=== PATIENT | male | born 1940 | race Hispanic/Latino ===

== ENCOUNTER 2017-10-18 17:19 | Inpatient (IN) | payer MEDICARE ==
[~2017-10-18] VITALS: Ht 160 cm; Wt 99.8 kg
[2017-10-18] MEDS ORDERED: ASPIRIN 81 MG CHEW TAB PO STA (18:33)
[2017-10-18] MEDS ORDERED: ALBUTEROL/IPRATROPIUM 3 ML NEB NEB ONE (18:45)
[2017-10-18 19:01] LABS: BASOPHILS # (AUTO) 0.1 (0.0-0.1); BASOPHILS % 0.8 % (0.0-1.0); EOSINOPHILS # (AUTO) 0.3 (0.0-0.4); EOSINOPHILS % 4.9 % (0.0-6.0); HEMATOCRIT 38.2 % (38.2-49.6); HEMOGLOBIN 12.9 g/dL (14.0-18.0); LYMPHOCYTES # (AUTO) 1.1 (1.0-3.2); LYMPHOCYTES % 17.5 % (18.0-39.1); MEAN CORPUSCULAR HEMOGLOBIN 32.9 pg (28-32); MEAN CORPUSCULAR HGB CONC 33.8 g/dL (31-35); MEAN CORPUSCULAR VOLUME 97.4 fL (81-99); MONOCYTES # (AUTO) 0.7 (0.2-0.8); MONOCYTES % 10.5 % (4.4-11.3); NEUTROPHILS # (AUTO) 4.2 (2.1-6.9); NEUTROPHILS % 65.7 % (38.7-80.0); PLATELET COUNT 138 x10e3/uL (140-360); RED BLOOD COUNT 3.92 x10e6/uL (4.3-5.7)
[2017-10-18 19:10] LABS: INR 1.14; PROTHROMBIN TIME 13.7 seconds (11.9-14.5)
[2017-10-18 19:11] LABS: PARTIAL THROMBOPLASTIN TIME 35.4 seconds (23.8-35.5)
[2017-10-18 19:18] LABS: ALBUMIN 3.6 g/dL (3.5-5.0); ALBUMIN/GLOBULIN RATIO 0.7 (0.8-2.0); ANION GAP 17.1 mmol/L (8-16); CALCIUM 9.4 mg/dL (8.4-10.2); CREATININE, SERUM 1.38 mg/dL (0.72-1.25); POTASSIUM 4.1 mmol/L (3.5-5.1)
[2017-10-18 19:25] LABS: CREATINE KINASE MB 1.1 ng/mL (0-5.0)
--- NOTE | 2017-10-18 19:42 | Diagnostic Imaging Report ---
Examination: Single AP view of the chest. COMPARISON: None. INDICATION: Shortness of breath, chest pain IMPRESSION: 1. Lines and Tubes: None 2. Minimal right infrahilar opacity, which likely represents atelectasis. No consolidation or effusion 3. Cardiomediastinal silhouette is normal. Prominence of bilateral pulmonary arteries, which may reflect pulmonary hypertension.. 4. No acute bony abnormalities. Signed by: Dr. Dylon Stringer M.D. on 10/18/2017 7:38 PM
[2017-10-18] MEDS ORDERED: FUROSEMIDE40 MG PO (20:09)
[2017-10-18] MEDS ORDERED: GABAPENTIN300 MG PO (20:09)
[2017-10-18] MEDS ORDERED: PRAVASTATIN SOD80 MG PO (20:09)
[2017-10-18] MEDS ORDERED: HYDRALAZINE HCL25 MG PO (20:09)
[2017-10-18] MEDS ORDERED: METFORMIN HCL500 M1 PO (20:09)
[2017-10-18] MEDS ORDERED: ULTRACET TABLE1 EACH PO (20:09)
[2017-10-18] MEDS ORDERED: GEMFIBROZIL600 MG PO (20:09)
[2017-10-18] MEDS ORDERED: DIOVAN80 MG PO (20:09)
[2017-10-18] MEDS ORDERED: ATENOLOL50 MG PO (20:09)
[2017-10-18] MEDS ORDERED: SODIUM CHLORIDE 0.9% 500ML 500 ML IV ONE (21:00)
[2017-10-18 21:08] LABS: AMYLASE 62 U/L (25-125); LIPASE 45 U/L (8-78)
[2017-10-18] MEDS ORDERED: AZITHROMYCIN 500MG/NS 250 ML 250 ML IV SCH (21:15)
[2017-10-18] MEDS ORDERED: DIATRIZOATE MEGL/DIATRIZOA SOD 30 ML BTL PO ONE (21:19)
[2017-10-18] MEDS: CEFTRIAXONE SOD 1 GM VIAL IV SCH (21:58)
--- NOTE | 2017-10-18 23:33 | Diagnostic Imaging Report ---
EXAM: CT Chest, Abdomen and Pelvis WITHOUT contrast INDICATION: Abdominal pain, ventral hernia COMPARISON: Chest x-ray on 10/18/2017 TECHNIQUE: Chest, abdomen and pelvis were scanned utilizing a multidetector helical scanner from the lung apex to the pubic symphysis without administration of IV contrast. Absence of intravenous contrast decreases sensitivity for detection of focal lesions and vascular pathology. Coronal and sagittal reformations were obtained. Routine protocol was performed. IV CONTRAST: None. ORAL CONTRAST: Water RADIATION DOSE: Total DLP: 1238 mGy*cm Estimated effective dose: (DLP x 0.015 x size factor) mSv COMPLICATIONS: None FINDINGS: LINES and TUBES: None. LUNGS AND AIRWAYS: Multiple bilateral pulmonary nodules with an ill-defined confluent left lower lobe para-aortic mass measuring 9.7 cm in largest dimension, pleural base with invasion into the mediastinal fat. There is also invasion into the left ribs, and left vertebral body of T6 and T7 best seen on series 5, image 57. There is encroachment of the T6-7 neural foramina. Airways are normal. PLEURA: The pleural spaces are clear. HEART AND MEDIASTINUM: The thyroid gland is normal. Right anterior hilar adenopathy The heart is normal in size.. There is no pericardial effusion. There are moderate atherosclerotic calcifications in the aorta and coronary arteries. HEPATOBILIARY: No focal hepatic lesions. No biliary ductal dilation. GALLBLADDER: There are stones in the gallbladder. No wall thickening. SPLEEN: No splenomegaly. PANCREAS: No focal masses or ductal dilatation. ADRENALS: No adrenal nodules KIDNEYS/URETERS: No hydronephrosis. No cystic or solid mass lesions. No stones. GI TRACT: No abnormal distention, wall thickening, or evidence of bowel obstruction. Appendix is normal. PELVIC ORGANS/BLADDER: Unremarkable. LYMPH NODES: No lymphadenopathy. VESSELS: There is moderate atherosclerotic disease in the aorta and major arterial branches. Infrarenal abdominal aortic ectasia measuring 3.6 cm in maximum dimension PERITONEUM / RETROPERITONEUM: No free air or fluid. BONES: Lytic lesions involving the left side at T6, T7 and T7 left rib. Chronic compression deformity of T11 vertebral body SOFT TISSUES: Unremarkable. IMPRESSION: 1. Findings in the chest are concerning for left lower lobe primary lung carcinoma with pleural and contralateral lung metastasis. 2. Metastases include the right lung, right hilum, thoracic spine and pleural space. 3. No evidence of abdominal or pelvic abnormalities. 4. Cholelithiasis without evidence of acute cholecystitis. Signed by: Dr. Bart Reilly M.D. on 10/18/2017 11:23 PM
[2017-10-18 23:47] LABS: BILIRUBIN,URINE NEGATIVE (NEGATIVE); KETONES,URINE NEGATIVE (NEGATIVE); LEUKOCYTE ESTERASE ,URINE NEGATIVE (NEGATIVE); NITRITE,URINE NEGATIVE (NEGATIVE); PROTEIN,URINE DIPSTICK NEGATIVE (NEGATIVE); URINE UROBILINOGEN 0.2 mg/dL (0.2 - 1)
[2017-10-18 23:48] LABS: CLARITY,URINE CLEAR (CLEAR); COLOR,URINE YELLOW (YELLOW)
[2017-10-18 23:54] LABS: BACTERIA,URINE FEW /HPF; EPITHELIAL CELLS,URINE FEW /LPF; WBC,URINE (MAN) 0-5 /HPF (0-5)
[2017-10-19] VITALS (7 sets, daily range): BP systolic 131–144; BP diastolic 62–70
[2017-10-19] MEDS ORDERED: ALBUTEROL SULF 0.083% NEB SOLN 3 ML NEB NEB SCH (00:30)
--- OUTSIDE RECORDS SUMMARY | 2017-10-19 00:51 | XMS REPORT ---
Author Author [facility] Address Unknown Phone Unavailable Care Team Providers Care Cat Hooker Name Role Phone GERALDO HUFFMAN Unavailable Unavailable Problems This patient has no known problems. Allergies, Adverse Reactions, Alerts This patient has no known allergies or adverse reactions. Medications This patient has no known medications. Results Test Description Test Time Test Comments Text Results Atomic Results Result Comments CT ABDOMEN/PELVIS WO [place] [address] Patient Name: MARYAN BEASLEY MR #: [id number] : 1940 Age/Sex: 77/M Req # : [id number] Adm Physician: Ordered by: GERALDO HUFFMAN MD Report #: [id number] Location: ER Room/Bed: Procedure: [id number] CT/CT ABDOMEN/PELVIS WO Exam Date: 10/18/17 Exam Time: 2236 REPORT STATUS: Signed EXAM: CT Chest, Abdomen and Pelvis WITHOUT contrast INDICATION: Abdominal pain, ventral hernia COMPARISON: Chest x-ray on 10/18/2017 TECHNIQUE: Chest, abdomen and pelvis were scanned utilizing a multidetector helical scanner from the lung apex to the pubic symphysis without administration of IV contrast. Absence of intravenous contrast decreases sensitivity for detection of focal lesions and vascular pathology. Coronal and sagittal reformations were obtained. Routine protocol was performed. IV CONTRAST: None. ORAL CONTRAST: Water RADIATION DOSE: Total DLP: 1238 mGy*cm Estimated effective dose: (DLP x 0.015 x size factor) mSv COMPLICATIONS: None FINDINGS: LINES and TUBES: None. LUNGS AND AIRWAYS: Multiple bilateral pulmonary nodules with an ill-defined confluent left lower lobe para-aortic mass measuring 9.7 cm in largest dimension, pleural base with invasion into the mediastinal fat. There is also invasion into the left ribs, and left vertebral body of T6 and T7 best seen on series 5 , image 57. There is encroachment of the T6-7 neural foramina. Airways are normal. PLEURA: The pleural spaces are clear. HEART AND MEDIASTINUM: The thyroid gland is normal. Right anterior hilar adenopathy The heart is normal in size.. There is no pericardial effusion. There are moderate atherosclerotic calcifications in the aorta and coronary arteries. HEPATOBILIARY: No focal hepatic lesions. No biliary ductal dilation. GALLBLADDER: There are stones in the gallbladder. No wall thickening. SPLEEN: No splenomegaly. PANCREAS: No focal masses or ductal dilatation. ADRENALS: No adrenal nodules KIDNEYS/URETERS: No hydronephrosis. No cystic or solid mass lesions. No stones. GI TRACT: No abnormal distention, wall thickening, or evidence of bowel obstruction. Appendix is normal. PELVIC ORGANS/BLADDER: Unremarkable. LYMPH NODES: No lymphadenopathy. VESSELS: There is moderate atherosclerotic disease in the aorta and major arterial branches. Infrarenal abdominal aortic ectasia measuring 3.6 cm in maximum dimension PERITONEUM / RETROPERITONEUM: No free air or fluid. BONES: Lytic lesions involving the left side at T6, T7 and T7 left rib. Chronic compression deformity of T11 vertebral body SOFT TISSUES: Unremarkable. IMPRESSION: 1. Findings in the chest are concerning for left lower lobe primary lung carcinoma with pleural and contralateral lung metastasis. 2. Metastases include the right lung, right hilum, thoracic spine and pleural space. 3. No evidence of abdominal or pelvic abnormalities. 4. Cholelithiasis without evidence of acute cholecystitis. Signed by: Dr. Bart Reilly M.D. on 2017 11:23 PM Dictated By: BART ALEMAN MD [id number] Transcribed By: FRANKI on 10/18/17 7249 COPY TO: GERALDO HUFFMAN MD CHEST [facility] (PORTABLE) [facility] [address] [place] [address] Patient Name: MARYAN BEASLEY MR #: [id number] : 1940 Age/Sex: 77/M Req #: [id number] Adm Physician: Ordered by: MARIA LUZ URIAS NP Report #: [id number] Location: ER Room/Bed: Procedure: [id number] DX/CHEST SINGLE (PORTABLE) Exam Date: 10/18/17 Exam Time: 1845 REPORT STATUS: Signed Examination: Single AP view of the chest. COMPARISON: None. INDICATION: Shortness of breath, chest pain IMPRESSION: 1. Lines and Tubes: None 2. Minimal right infrahilar opacity, which likely represents atelectasis. No consolidation or effusion 3. Cardiomediastinal silhouette is normal. Prominence of bilateral pulmonary arteries, which may reflect pulmonary hypertension.. 4. No acute bony abnormalities. Signed by: Dr. Bertt Stringer M.D. on 10/18/2017 7: 38 PM Dictated By: BRETT STRINGER MD 37 Transcribed By: FRANKI on 10/18/171937 COPY TO: MARIA LUZ URIAS STUNT DRIVER CT CHEST WO [place] [address] Patient Name: MARYAN BEASLEY MR #: [id number] : 1940 Age/Sex: 77/M Req #: [id number] Adm Physician: Ordered by: GERALDO HUFFMAN MD Report #: [id number] Location: ER Room/Bed: Procedure: [id number] CT/CT CHEST WO Exam Date: 10/18/17 Exam Time: 2236 REPORT STATUS: Signed EXAM: CT Chest, Abdomen and Pelvis WITHOUT contrast INDICATION: Abdominal pain, ventral hernia COMPARISON: Chest x-ray on 2017 TECHNIQUE: Chest, abdomen and pelvis were scanned utilizing a multidetector helical scanner from the lung apex to the pubic symphysis without administration of IV contrast. Absence of intravenous contrast decreases sensitivity for detection of focal lesions and vascular pathology. Coronal and sagittal reformations were obtained. Routine protocol was performed. IV CONTRAST: None. ORAL CONTRAST: Water RADIATION DOSE: Total DLP: 1238 mGy*cm Estimated effective dose: (DLP x 0.015 x size factor) mSv COMPLICATIONS: None FINDINGS: LINES and TUBES: None. LUNGS AND AIRWAYS: Multiple bilateral pulmonary nodules with an ill-defined confluent left lower lobe para-aortic mass measuring 9.7 cm in largest dimension, pleural base with invasion into the mediastinal fat. There is also invasion into the left ribs, and left vertebral body of T6 and T7 best seen on series 5, image 57. There is encroachment of the T6-7 neural foramina. Airways are normal. PLEURA: The pleural spaces are clear. HEART AND MEDIASTINUM: The thyroid gland is normal. Right anterior hilar adenopathy The heart is normal in size.. There is no pericardial effusion. There are moderate atherosclerotic calcifications in the aorta and coronary arteries. HEPATOBILIARY: No focal hepatic lesions. No biliary ductal dilation. GALLBLADDER: There are stones in the gallbladder. No wall thickening. SPLEEN: No splenomegaly. PANCREAS: No focal masses or ductal dilatation. ADRENALS: No adrenal nodules KIDNEYS/URETERS: No hydronephrosis. No cystic or solid mass lesions. No stones. GI TRACT: No abnormal distention, wall thickening, or evidence of bowel obstruction. Appendix is normal. PELVIC ORGANS/BLADDER: Unremarkable. LYMPH NODES: No lymphadenopathy. VESSELS: There is moderate atherosclerotic disease in the aorta and major arterial branches. Infrarenal abdominal aortic ectasia measuring 3.6 cm in maximum dimension PERITONEUM / RETROPERITONEUM: No free air or fluid. BONES: Lytic lesions involving the left side at T6, T7 and T7 left rib. Chronic compression deformity of T11 vertebral body SOFT TISSUES: Unremarkable. IMPRESSION: 1. Findings in the chest are concerning for left lower lobe primary lung carcinoma with pleural and contralateral lung metastasis. 2. Metastases include the right lung, right hilum, thoracic spine and pleural space. 3. No evidence of abdominal or pelvic abnormalities. 4. Cholelithiasis without evidence of acute cholecystitis. Signed by: Dr. Bart Reilly M.D. on 10/18/2017 11:23 PM Dictated By: BART ALEMAN MD [id number] Transcribed By: FRANKI on 10/18/17 4951 COPY TO: GERALDO HUFFMAN MD
[2017-10-19] MEDS ORDERED: IPRATROPIUM BROMIDE 0.02% 2.5 ML NEB NEB SCH (06:00)
[2017-10-19] MEDS: ALBUTEROL SULF 0.083% NEB SOLN 3 ML NEB NEB PRN (07:00)
[2017-10-19] MEDS: IPRATROPIUM BROMIDE 0.02% 2.5 ML NEB NEB PRN (07:00)
[2017-10-19] MEDS: CEFTRIAXONE SOD 1 GM VIAL IV SCH (08:48)
[2017-10-19] MEDS ORDERED: HYDROCODONE/APAP 5MG-325MG TAB PO PRN (11:15)
[2017-10-19] MEDS: LIDOCAINE 5% PATCH TP SCH (11:15)
[2017-10-19] MEDS ORDERED: DEXTROSE 50% SYRINGE 50 ML IV PRN (11:15)
[2017-10-19] MEDS ORDERED: MORPHINE SULFATE 2 MG/ML SYR IV PRN (11:15)
[2017-10-19] MEDS: INSULIN REGULAR, HUMAN 100 UNIT/1 ML 3ML VIAL SQ SCH ×3 (11:30→21:00)
[2017-10-19] MEDS: SODIUM CHLORIDE 0.9% 1000ML 1,000 ML IV SCH ×2 (11:35→21:49)
[2017-10-19] MEDS: HYDROCODONE/APAP 5MG-325MG TAB PO PRN ×2 (11:36→19:44)
[2017-10-19 12:36] LABS: CREATINE KINASE MB 1.2 ng/mL (0-5.0)
--- NOTE | 2017-10-19 13:11 | History and Physical ---
This is an internal medicine history and physical. CHIEF COMPLAINT: Left rib pain ongoing for several weeks. HPI: A 77-year-old male morbidly obese, chronic smoker in the past, hypertension, hyperlipidemia, history of CAD, who comes into the ED with complaints of underlying left rib pain near his left chest wall over the last several weeks. The patient reports that he has been seeing his regular doctor, and was told that he underlying shingles and was treated accordingly. Yesterday, he reports left upper abdominal pain around the ribs with radiation to underlying chest wall pain to his PCP's office, and was told to come to the ER for further evaluation. The patient came in and further evaluated with no evidence of shortness of breath. His CT imaging was consistent with lung lesions with metastasis with lytic lesions on the thoracic vertebra. The patient was seen and evaluated at bedside on the medical floor. Currently, doing well with no other issues. REVIEW OF SYSTEMS: Pertinent positives are left-sided rib pain ongoing for several weeks. Chest pain. Pertinent negatives: Denies any palpitations, nausea, vomiting, diarrhea, dysuria, hematuria, frequency, urgency, lightheadedness, dizziness, abdominal pain, headache, shortness of breath, or any other complaints. The rest of the 14-point review of systems have been reviewed with the patient and are negative. ALLERGIES: NO KNOWN DRUG ALLERGIES. HOME MEDICATIONS 1. Furosemide 40 mg daily. 2. Metformin 500 mg daily. 3. Tramadol for pain. 4. Atenolol 50 mg p.o. b.i.d. 5. Gabapentin 300 mg p.o. b.i.d. 6. Gemfibrozil 600 mg p.o. b.i.d. 7. Hydralazine 50 mg p.o. b.i.d. 8. Pravastatin 80 mg p.o. b.i.d. 9. Valsartan 80 mg daily. PAST MEDICAL HISTORY: Hypertension, diabetes, coronary artery disease with stent placement, COPD, CKD. SURGICAL HISTORY: Reports that he has a history of CAD with stents in the past. FAMILY HISTORY: Hypertension and diabetes. SOCIAL HISTORY: Denies drugs, alcohol. Used to be a smoker many years ago, and currently does not smoke. Good social support. He lives with his . PHYSICAL EXAMINATION VITAL SIGNS: Temperature is 97.5, pulse 75, respiratory rate 20, blood pressure 131/62, and pulse ox is 95% on room air. GENERAL: Not in acute distress. Alert and oriented times 3. Cooperative on exam. HEENT: Head is normocephalic and atraumatic. Eyes: Pupils equal, round and reactive to light bilaterally. Extraocular movements intact bilaterally. NECK: Supple. Good range of motion. Throat with no evidence of any erythema or exudates in the posterior pharynx. Has poor dentition. PULMONARY: Clear to auscultation bilaterally. No wheezing. No rales. No rhonchi. No crackles appreciated. CARDIOVASCULAR: Positive S1 and S2. No murmurs, rubs or gallops appreciated. Tender to palpation in the left rib cage region. ABDOMEN: Soft, nondistended and nontender to palpation. Bowel sounds present. MUSCULOSKELETAL: Strength is 5/5 throughout in all muscles. . NEUROLOGICAL: Cranial nerves II-XII are grossly intact. No evidence of any neurological deficit on exam. SKIN: Intact. Warm to touch. Good cap refill. PSYCHIATRIC: Normal affect and mood. EXTREMITIES: No edema. Good range of motion. LAB FINDINGS: Show a white count of 6.3, hemoglobin 12.9, hematocrit 38, and platelets of 138,000. Coagulations are normal. Chemistry: Sodium 140, potassium 4.1, chloride 104, bicarb 23, anion gap of 17, BUN 29, creatinine 1.38, and glucose is 120. Calcium 9.4. LFTs were normal. His troponin was negative times 1. BNP is 111. Total protein 8.7, albumin 3.6. Lipase and amylase were normal. Urinalysis was negative. Flu was negative. MICROBIOLOGY: Blood and urine cultures are pending. IMAGING STUDIES: CT of the chest showed left lower lobe primary lung carcinoma with pleural and collateral lung metastasis. Metastasis include right lung, right hilum, thoracic spine, and pleural space. There is some cholelithiasis without evidence of acute cholecystitis. Chest x-ray shows cardiomediastinal silhouette is normal with bilateral pulmonary arteries consistent with possibly pulmonary hypertension. There is a minimal right infrahilar opacity. On the CT of the abdomen and pelvis, there is some lytic lesion seen on T6-T7 and left rib. There is chronic compression deformity of T11 vertebral body. There is also evidence of metastasis, including the right lung, right hilum, thoracic spine, and pleural space. ASSESSMENT AND PLAN 1. Atypical chest pain likely secondary to lung cancer with metastasis: Trend troponins. No need for cardiology consultation. Electrocardiogram showed no acute findings. Continue with cardiac telemetry. If continues to have chest pain, which currently he does not, will get cardiology consultation. 2. Lung nodules with metastasis with lytic lesions and thoracic spine lesions, including left rib lesions: Will consult with oncology for further evaluation. Likely has underlying lung cancer with metastasis. The patient has a long-term history of smoking. He is currently not smoking at this time. Put on intravenous fluids. Pain control with lidocaine patch, Venedocia and intravenous morphine. 3. Hypertension: Continue same home medications. 4. Hyperlipidemia: Continue with same home medications. 5. Prophylaxis: Will be Lovenox. 6. Fluids, electrolytes and nutrients: Will put on intravenous fluids of normal saline. Heart-healthy diet. 7. Disposition: Inpatient. Oncology consulted. Job#: [id number] VT
[2017-10-19] MEDS: HYDRALAZINE HCL 25 MG TAB PO SCH (17:00)
[2017-10-19] MEDS: GABAPENTIN 300 MG CAP PO SCH (17:00)
[2017-10-19] MEDS: GEMFIBROZIL 600 MG TAB PO SCH (17:00)
[2017-10-19] MEDS: ATENOLOL 50 MG TAB PO SCH (17:00)
[2017-10-19 19:02] LABS: CREATINE KINASE MB 1.3 ng/mL (0-5.0)
[2017-10-20] VITALS (7 sets, daily range): BP systolic 132–159; BP diastolic 66–83
[2017-10-20] MEDS: HYDROCODONE/APAP 5MG-325MG TAB PO PRN ×2 (02:10→07:10)
[2017-10-20 05:55] LABS: BASOPHILS % 0.5 % (0.0-1.0); EOSINOPHILS # (AUTO) 0.2 (0.0-0.4); HEMATOCRIT 36.2 % (38.2-49.6); HEMOGLOBIN 12.4 g/dL (14.0-18.0); LYMPHOCYTES # (AUTO) 1.5 (1.0-3.2); LYMPHOCYTES % 27.8 % (18.0-39.1); MEAN CORPUSCULAR HEMOGLOBIN 32.9 pg (28-32); MEAN CORPUSCULAR HGB CONC 34.3 g/dL (31-35); MONOCYTES # (AUTO) 0.6 (0.2-0.8); MONOCYTES % 9.9 % (4.4-11.3); NEUTROPHILS # (AUTO) 3.2 (2.1-6.9); NEUTROPHILS % 57.4 % (38.7-80.0); PLATELET COUNT 155 x10e3/uL (140-360); RED BLOOD COUNT 3.77 x10e6/uL (4.3-5.7)
[2017-10-20 06:18] LABS: ALANINE AMINOTRANSFERASE 10 IU/L (0-55); ALBUMIN 3.2 g/dL (3.5-5.0); ALBUMIN/GLOBULIN RATIO 0.7 (0.8-2.0); ALKALINE PHOSPHATASE 76 IU/L (40-150); ANION GAP 13.8 mmol/L (8-16); BLOOD UREA NITROGEN 16 mg/dL (7-26); BUN/CREATININE RATIO 16 (6-25); CARBON DIOXIDE 23 mmol/L (22-29); CHLORIDE 109 mmol/L (98-107); CREATININE, SERUM 0.97 mg/dL (0.72-1.25); EST GLOMERULAR FILTRATION RATE > 60 ML/MIN (60-); GLUCOSE 106 mg/dL (74-118); POTASSIUM 3.8 mmol/L (3.5-5.1); SODIUM 142 mmol/L (136-145)
[2017-10-20] MEDS: INSULIN REGULAR, HUMAN 100 UNIT/1 ML 3ML VIAL SQ SCH ×4 (07:30→20:19)
[2017-10-20] MEDS: SODIUM CHLORIDE 0.9% 1000ML 1,000 ML IV SCH ×2 (08:00→17:12)
[2017-10-20] MEDS: ATENOLOL 50 MG TAB PO SCH ×2 (08:37→17:00)
[2017-10-20] MEDS: GABAPENTIN 300 MG CAP PO SCH ×2 (08:37→17:00)
[2017-10-20] MEDS: HYDRALAZINE HCL 25 MG TAB PO SCH ×2 (08:37→17:00)
[2017-10-20] MEDS: GEMFIBROZIL 600 MG TAB PO SCH ×2 (08:37→17:00)
[2017-10-20] MEDS: LIDOCAINE 5% PATCH TP SCH (08:38)
[2017-10-20] MEDS ORDERED: VALSARTAN 80 MG TAB PO SCH (09:00)
[2017-10-20] MEDS ORDERED: HYDROCODONE/APAP 10MG-325MG TAB PO PRN (11:15)
[2017-10-20] MEDS: IPRATROPIUM BROMIDE 0.02% 2.5 ML NEB NEB PRN (14:00)
[2017-10-20] MEDS: ALBUTEROL SULF 0.083% NEB SOLN 3 ML NEB NEB PRN (14:00)
[2017-10-20] MEDS: ALBUTEROL/IPRATROPIUM 3 ML NEB NEB SCH (20:00)
[2017-10-20] MEDS: BENZONATATE 100 MG CAP PO SCH (21:00)
[2017-10-20] MEDS: GUAIFENESIN/DEXTROMETHORPHAN LIQD 5 ML UDC PO SCH (21:00)
[2017-10-20] MEDS: SIMVASTATIN 40 MG TAB PO SCH (21:00)
[2017-10-21] VITALS (7 sets, daily range): BP systolic 121–184; BP diastolic 52–81
[2017-10-21] MEDS: ALBUTEROL/IPRATROPIUM 3 ML NEB NEB SCH ×4 (02:30→19:45)
[2017-10-21] MEDS: SODIUM CHLORIDE 0.9% 1000ML 1,000 ML IV SCH ×2 (02:54→14:50)
[2017-10-21] MEDS: GUAIFENESIN/DEXTROMETHORPHAN LIQD 5 ML UDC PO SCH ×3 (05:18→23:14)
[2017-10-21] MEDS: BENZONATATE 100 MG CAP PO SCH ×3 (05:18→23:14)
[2017-10-21] MEDS: INSULIN REGULAR, HUMAN 100 UNIT/1 ML 3ML VIAL SQ SCH ×4 (07:30→21:00)
[2017-10-21] MEDS: ATENOLOL 50 MG TAB PO SCH ×2 (08:20→17:07)
[2017-10-21] MEDS: GABAPENTIN 300 MG CAP PO SCH ×2 (08:20→17:07)
[2017-10-21] MEDS: GEMFIBROZIL 600 MG TAB PO SCH ×2 (08:20→17:07)
[2017-10-21] MEDS: LIDOCAINE 5% PATCH TP SCH (08:20)
[2017-10-21] MEDS: HYDRALAZINE HCL 25 MG TAB PO SCH ×2 (08:20→17:07)
[2017-10-21] MEDS ORDERED: GELATIN SPONGE 12-7MM ONE (10:51)
[2017-10-21] MEDS ORDERED: MIDAZOLAM HCL 2 MG/2 ML VIAL ONE (11:07)
[2017-10-21] MEDS ORDERED: FENTANYL CITRATE/PF 100MCG/2 ML INJ ONE (11:08)
[2017-10-21] MEDS ORDERED: SODIUM CHLORIDE 0.9% 250ML 250 ML ONE (11:24)
--- NOTE | 2017-10-21 14:33 | Diagnostic Imaging Report ---
PROCEDURE:IR BIOPSY LUNG COMPARISON:CT chest 10/18/2017. INDICATIONS:Lung Mass. DESCRIPTION:The previous imaging studies were reviewed. The lesion in the left posterior rib was identified. A safe approach was determined. The level was localized utilizing external markers and multiple axial images. The skin was prepped and draped in the usual sterile fashion. 1% lidocaine was infused into the subcutaneous tissues for local anesthesia. A guide needle was advanced into the mass. The proper position of the needle tip was confirmed with axial CT images. Fine needle aspiration biopsy samples x3 and core biopsy samples x6 were obtained of the mass. The specimens were given to pathology, who was identified. Pathology determined the specimens to be of proper cellularity for diagnosis. Upon completion of the procedure, the needle was removed. No hematoma or pneumothorax is identified. A sterile dressing was applied. The patient tolerated the procedure well. There were no immediate complications. The patient was transferred to the post procedure area in stable unchanged condition for further monitoring. CONCLUSION:Successful CT guided biopsy of the left posterior rib mass. Dictated by: Chaparro Cameron M.D. on 10/21/2017 at 14:32 Electronically approved by: Chaparro Camreon M.D. on 10/21/2017 at 14:32
--- NOTE | 2017-10-21 16:27 | Consultation ---
DATE OF CONSULTATION: PULMONARY CONSULTATION Patient of Dr. Arnoldo Mayfield, Dr. Smart, Dr. Kim, Dr. Laura Frnace, Dr. Pugh. 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 [employer], worked on a [employer], from [employer]. He has history of coronary artery disease with stent. HOME MEDICATIONS: Lasix, metformin, tramadol, atenolol, Neurontin, Lopid, Pravachol, and valsartan. PHYSICAL EXAMINATION HEENT: Head normocephalic, atraumatic. Changes of actinic keratosis. LUNGS: Diminished breath sounds. HEART: Regular rhythm. ABDOMEN: Distended. EXTREMITIES: There is stasis changes. ASSESSMENT: Evidence of cholelithiasis. Radiologist does not report . PLAN: Proceed with transthoracic needle biopsy. Old to be helpful, but patient cannot recall where his biopsies and surgeries were performed. He is agreeable for transthoracic biopsy. Patient's family has had multiple cancers in the past. Thank you for this kind referral. Job#: [id number]
[2017-10-21] MEDS: SIMVASTATIN 40 MG TAB PO SCH (23:14)
[2017-10-22] VITALS (7 sets, daily range): BP systolic 139–169; BP diastolic 64–78
[2017-10-22] MEDS: ALBUTEROL/IPRATROPIUM 3 ML NEB NEB SCH ×4 (01:00→20:15)
[2017-10-22] MEDS: SODIUM CHLORIDE 0.9% 1000ML 1,000 ML IV SCH ×3 (03:49→21:10)
[2017-10-22] MEDS: GUAIFENESIN/DEXTROMETHORPHAN LIQD 5 ML UDC PO SCH ×3 (05:22→21:10)
[2017-10-22] MEDS: BENZONATATE 100 MG CAP PO SCH ×3 (05:22→21:10)
[2017-10-22] MEDS: INSULIN REGULAR, HUMAN 100 UNIT/1 ML 3ML VIAL SQ SCH ×4 (07:30→20:30)
[2017-10-22] MEDS: ACETAMINOPHEN/CODEINE 300MG - 30MG TAB PO PRN (07:38)
[2017-10-22] MEDS: HYDRALAZINE HCL 25 MG TAB PO SCH ×2 (07:40→17:27)
[2017-10-22] MEDS: GABAPENTIN 300 MG CAP PO SCH ×2 (07:40→17:27)
[2017-10-22] MEDS: GEMFIBROZIL 600 MG TAB PO SCH ×2 (07:40→17:27)
[2017-10-22] MEDS: ATENOLOL 50 MG TAB PO SCH ×2 (07:40→17:28)
[2017-10-22] MEDS: LIDOCAINE 5% PATCH TP SCH (07:41)
[2017-10-22] MEDS: DEXAMETHASONE 4 MG TAB PO SCH ×3 (11:52→17:28)
[2017-10-22] MEDS: SIMVASTATIN 40 MG TAB PO SCH (21:10)
[2017-10-23] VITALS: BP 146/65
[2017-10-23] MEDS: DEXAMETHASONE 4 MG TAB PO SCH ×3 (00:21→12:00)
[2017-10-23] MEDS: ALBUTEROL/IPRATROPIUM 3 ML NEB NEB SCH ×2 (00:45→07:00)
[2017-10-23 04:00] VITALS: BP 125/60
[2017-10-23] MEDS: SODIUM CHLORIDE 0.9% 1000ML 1,000 ML IV SCH (05:18)
[2017-10-23] MEDS: GUAIFENESIN/DEXTROMETHORPHAN LIQD 5 ML UDC PO SCH (05:18)
[2017-10-23] MEDS: BENZONATATE 100 MG CAP PO SCH (05:19)
[2017-10-23] MEDS: ACETAMINOPHEN/CODEINE 300MG - 30MG TAB PO PRN (05:47)
[2017-10-23 08:15] VITALS: BP 159/88
[2017-10-23 08:17] VITALS: BP 159/88
[2017-10-23] MEDS: LIDOCAINE 5% PATCH TP SCH (08:19)
[2017-10-23] MEDS: GABAPENTIN 300 MG CAP PO SCH (08:20)
[2017-10-23] MEDS: GEMFIBROZIL 600 MG TAB PO SCH (08:20)
[2017-10-23] MEDS: INSULIN REGULAR, HUMAN 100 UNIT/1 ML 3ML VIAL SQ SCH ×2 (08:20→12:00)
[2017-10-23] MEDS: ATENOLOL 50 MG TAB PO SCH (08:20)
[2017-10-23] MEDS: HYDRALAZINE HCL 25 MG TAB PO SCH (08:20)
--- NOTE | 2017-10-23 10:04 | Consultation ---
DATE OF CONSULTATION: October 21, 2017 Mr. Amarjit Hernandez is a 77-year-old male who has been referred to me for evaluation of a 9.7 cm left lower lobe mass with invasion into the left rib. The patient had presented with abdominal pain. SOCIAL HISTORY: Noncontributory. FAMILY HISTORY: Noncontributory. ALLERGIES: NONE. MEDICATIONS: At this time consist of: 1. Albuterol. 2. Sodium chloride. 3. Atenolol. 4. Gabapentin. 5. Hydralazine. 6. Simvastatin. 7. Lidocaine. 8. Morphine. 9. Insulin. 10. Benzonate. 11. Guaifenesin. REVIEW OF SYSTEMS HEENT: Normal. CARDIAC: History of hypertension and hyperlipidemia. RESPIRATORY: A 9.7-cm mass. GI: Normal. : History of having had nephrectomy approximately 6 years back. The patient does not recall where. PHYSICAL EXAMINATION GENERAL: A rather obese male. No palpable adenopathy. HEART: Within normal limits. LUNGS: Clear. ABDOMEN: Obese. There is no hepatosplenomegaly. RECTAL: Deferred. CENTRAL NERVOUS SYSTEM: Essentially normal. EXTREMITIES: Essentially normal. LABS: Shows a sodium of 142, potassium 3.8, chloride 109, CO2 23 BUN 15, creatinine 0.9, glucose 160. Hemoglobin of 12.4, hematocrit 36.2, white count 5500, platelets 155,000. INR 1.14. Bilirubin 0.6, SGOT 21, SGPT 10, alkaline phosphatase 76. Chest x-ray shows a left lower lobe mass, 8.[address] reveals invasion to the left ribs and invasion to T6-T7, and encroachment of T6-T7 neural foramina. Invasion into the mediastinum. The patient also shows gallstones and atherosclerotic cardiovascular disease. There was an infrarenal aortic ectasia of 3.6 cm. The T6 and T7 have a lytic lesion. Laboratory also shows the proteins to be high at 8.7. The globulin is high at 5.1. IMPRESSION 1. Left lower lobe mass, 9.7 cm. 2. Invasion to the left ribs. 3. Invasion to T6-T7. 4. Encroachment of T6-T7 neural foramina. 5. Invasion into the mediastinum. 6. Gallstones. 7. Atherosclerotic cardiovascular disease. 8. Infrarenal aortic ectasia, 3.6 cm. 9. Lytic T6 and T7. 10. Anemia of chronic disease. 11. Hyperproteinemia of 8.7. 12. Hyperglobulinemia of 5.1. 13. Hyperglycemia. PLAN, COMMENTS AND SUGGESTIONS: Biopsy confirmation as soon as possible is essential. The patient will receive radiation therapy to T6-T7 to avoid transection of the cord. TKI depending on the pathology would be the best approach. I have spoken to the daughter, as well as the that this is an incurable cancer. Thank you very much for allowing me to participate in the management of this patient. I will arrange the radiation and TKI depending on the pathology. Job#: [id number] RI cc:MD GEORGES ZIEGLER MD JIRIES DAHU, MD
[2017-10-23] MEDS ORDERED: decadron PO (11:05)
[2017-10-23] MEDS ORDERED: [UNRECOGNIZED DRUG - OTHER] SUBD (11:06)
[2017-10-23 12:16] VITALS: BP 162/88
--- NOTE | 2017-10-23 13:10 | Discharge Summary ---
FINAL DISCHARGE DIAGNOSES 1. Lung cancer with metastasis, status post lung biopsy performed. 2. Atypical chest pain. 3. Hypertension. 4. Hyperlipidemia. 5. 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 CONSULTANTS: Oncology, Interventional Radiology and Pulmonary. VITAL SIGNS: Temperature is 97.5, pulse 62, respiratory rate is 20, blood pressure 159/88, pulse ox 98%, and he is on nasal cannula. LAB FINDINGS: Sodium 142, potassium 3.8, chloride 109, bicarb 23, BUN is 16, creatinine is 0.97, glucose 106. White count 5.5, hemoglobin 12.4, hematocrit is 36, platelets 155. PT 13.7, PTT 35, INR 1.1. LFTs were normal. Lipase of 45. MICROBIOLOGY: Blood cultures were negative. Urine cultures were negative. Sputum cultures were negative. IMAGING STUDIES: CT chest showed left lower lobe primary lung carcinoma with pleural and contralateral lung metastasis with metastasis including the right lung, right hilum, thoracic spine and pleural space. Chest x-ray showed evidence of a minimal right infrahilar opacity with pulmonary nodules. CT abdomen and pelvis showed similar findings with left lower lobe primary lung carcinoma with pleural and contralateral lung metastasis. HOSPITAL COURSE: This is a 77-year-old male who comes into the ED with complaints of left-sided rib pain ongoing for several weeks now. He was sent by his PCP for concerns of underlying lung cancer. Imaging studies were consistent with lung carcinoma with metastasis. Patient was admitted. CT chest was performed with results above. Oncology and Pulmonary were consulted, in which the patient had a status post lung biopsy. Pathology is still pending prior to discharge. Patient was started on oral Decadron and pain control including lidocaine patch. Patient will need to follow up with Oncology, Dr. Pugh, later today on October 23, 2017, and arrangement for radiation oncology will be arranged by the oncology office. I explained this to the daughter at bedside including the patient, and they verbalized understanding. Patient has home health, wheelchair, and home bed arranged already for him. He also has home oxygen arranged as well. On discharge the patient's pain is better controlled with no other issues. Patient needs to follow up with the oncologist later today. On the day of discharge, vital signs stable, labs reviewed and stable. Patient seen and evaluated and examined thoroughly on the day of discharge with no other complaints. Patient verbalized understanding and agreed with the plan of care, to follow up accordingly as an outpatient with his oncologist later today as well as radiation oncologist. Follow up with the PCP in 1 week. In the event of any worsening symptoms, the patient advised to come back to the ED for further evaluation. MEDICATIONS: See med reconciliation form. DISPOSITION: To home. CONDITION: Stable. DIET: Regular. FOLLOWUP: With the oncologist later this afternoon on October 23, 2017, for an appointment, as well as Radiation Oncology, including PCP. Discharge summary took greater than 35 minutes. JOSS DONALD MD Job#: [id number] EV
== END 2017-10-23 12:07 | disposition home or self-care (01) | DRG 167 ==
LOC: ER 17:19 → MED/SURG2 10-19 00:48
PROVIDERS: ADMIT Internal Medicine; ATTEND Internal Medicine
PROC: 0PB Upper Bones, Excision (ICD-10-PCS; principal; 2017-10-19)
PROC: 0P9 Upper Bones, Drainage (ICD-10-PCS; 2017-10-19)
DX: C34.92 Malignant neoplasm of unspecified part of left bronchus or lung (principal); C78.1 Secondary malignant neoplasm of mediastinum; C79.51 Secondary malignant neoplasm of bone; E72.59 Other disorders of glycine metabolism; C78.02 Secondary malignant neoplasm of left lung; E66.9 Obesity, unspecified; D63.0 Anemia in neoplastic disease; Z68.39 Body mass index [BMI] 39.0-39.9, adult; I25.10 Atherosclerotic heart disease of native coronary artery without angina pectoris; R77.1 Abnormality of globulin; I77.819 Aortic ectasia, unspecified site; R73.9 Hyperglycemia, unspecified
CPT/HCPCS: 32405; 36415; 71045; 71250; 74176; 74470; 77012; 80053; 81001; 82150; 82550; 82553; 82948; 83036; 83690; 83880; 84484; 85025; 85610; 85730; 87040; 87070; 87086; 87205; 87400; 88172; 88173; 88305; 88342; 93005; 93306; 94640; 96372; 99284; J0456; J0696; J2250; J7030; J7050

== ENCOUNTER 2018-11-12 13:57 | Emergency (ER) | payer MEDICARE ==
[~2018-11-12] VITALS: Ht 157.5 cm; Wt 77.1 kg
[~2018-11-12 13:57] MED LIST: ATENOLOL50 MG PO; DIOVAN80 MG PO; FUROSEMIDE40 MG PO; GABAPENTIN300 MG PO; GEMFIBROZIL600 MG PO; HYDRALAZINE HCL25 MG PO; METFORMIN HCL500 M1 PO; PRAVASTATIN SOD80 MG PO; ULTRACET TABLE1 EACH PO; [UNRECOGNIZED DRUG - OTHER] SUBD; decadron PO
[2018-11-12 14:31] LABS: BASOPHILS % 0.4 % (0.0-1.0); EOSINOPHILS # (AUTO) 0.1 (0.0-0.4); EOSINOPHILS % 1.2 % (0.0-6.0); HEMATOCRIT 43.7 % (38.2-49.6); HEMOGLOBIN 14.4 g/dL (14.0-18.0); LYMPHOCYTES # (AUTO) 1.1 (1.0-3.2); LYMPHOCYTES % 14.4 % (18.0-39.1); MEAN CORPUSCULAR HEMOGLOBIN 31.8 pg (28-32); MEAN CORPUSCULAR VOLUME 96.5 fL (81-99); MONOCYTES # (AUTO) 0.6 (0.2-0.8); MONOCYTES % 7.8 % (4.4-11.3); NEUTROPHILS # (AUTO) 5.7 (2.1-6.9); NEUTROPHILS % 75.5 % (38.7-80.0); PLATELET COUNT 142 x10e3/uL (140-360); RED BLOOD COUNT 4.53 x10e6/uL (4.3-5.7); RED CELL DISTRIBUTION WIDTH 14.1 % (11.7-14.4)
[2018-11-12] MEDS ORDERED: DIATRIZOATE MEGL/DIATRIZOA SOD 30 ML BTL PO ONE (14:43)
[2018-11-12 14:51] LABS: INR 0.92; PARTIAL THROMBOPLASTIN TIME 29.4 seconds (23.8-35.5); PROTHROMBIN TIME 12.9 seconds (11.9-14.5)
[2018-11-12 14:58] LABS: ALANINE AMINOTRANSFERASE 18 IU/L (0-55); ALBUMIN 3.3 g/dL (3.5-5.0); ALBUMIN/GLOBULIN RATIO 0.8 (0.8-2.0); ALKALINE PHOSPHATASE 82 IU/L (40-150); ANION GAP 11.1 mmol/L (8-16); BLOOD UREA NITROGEN 17 mg/dL (7-26); BUN/CREATININE RATIO 20 (6-25); CALCIUM 9.9 mg/dL (8.4-10.2); CARBON DIOXIDE 27 mmol/L (22-29); CHLORIDE 101 mmol/L (98-107); CREATININE, SERUM 0.84 mg/dL (0.72-1.25); EST GLOMERULAR FILTRATION RATE > 60 ML/MIN (60-); GLUCOSE 118 mg/dL (74-118); POTASSIUM 4.1 mmol/L (3.5-5.1); SODIUM 135 mmol/L (136-145)
--- NOTE | 2018-11-12 16:51 | Diagnostic Imaging Report ---
EXAM: CT Abdomen and Pelvis with contrast INDICATION: Not able to move right leg, history of cancer, rule out lumbar lytic lesion COMPARISON: CT abdomen/pelvis 10/18/2017. TECHNIQUE: Abdomen and pelvis were scanned utilizing a multidetector helical scanner from the lung apex to the pubic symphysis after administration of IV contrast (100 cc of Isovue 370). Coronal and sagittal reformations were obtained. Routine protocol was performed. RADIATION DOSE: Total DLP: 577.6 mGy*cm Dose modulation, iterative reconstruction, and/or weight based adjustment of the mA/kV was utilized to reduce the radiation dose to as low as reasonably achievable. COMPLICATIONS: None FINDINGS: LINES and TUBES: None. LOWER THORAX: There are multiple new and enlarging bilateral lower lobe nodules, for example in the right lower lobe measuring 1.2 cm on series 2, image 10, previously 0.7 cm. There are new and enlarging pleural-based nodules, for example in the left lower lobe measuring up to 2.2 cm on image 7, previously not visualized. Some of the pleural lesions are invading the adjacent ribs, for example in the left posterior lateral 10th rib on series 2, image 17. A right middle lobe mass measures up to 4 cm on image 1, previously 3.5 cm. Previously noted ill-defined left para-aortic mass is incompletely visualized. HEPATOBILIARY: Diffuse mild fatty liver. No focal hepatic lesions. No biliary ductal dilation. GALLBLADDER: There are stones in the gallbladder. No wall thickening. SPLEEN: No splenomegaly. PANCREAS: No focal masses or ductal dilatation. ADRENALS: New 1.3 cm left adrenal nodule. Right adrenal gland is likely surgically absent. KIDNEYS/URETERS: No hydronephrosis. No evidence of solid mass. There is a 2.0 cm hyperdense cyst within the left mid kidney. No stones. Status post right nephrectomy. GI TRACT: No abnormal distention, wall thickening, or evidence of bowel obstruction. PELVIC ORGANS/BLADDER: The bladder is unremarkable. LYMPH NODES: No lymphadenopathy. VESSELS: There are extensive atherosclerotic disease in the aorta and major arterial branches. Infrarenal abdominal aortic aneurysm measuring up to 3.7 cm is unchanged. 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 PERITONEUM / RETROPERITONEUM: No free air or fluid. BONES: There is a new lytic mass within the right iliac bone, measuring up to 4.9 cm with an adjacent soft tissue component. Multiple other subcentimeter hypodense lesions in the pelvis. Chronic severe compression deformities of the T11 and L1 vertebral bodies are unchanged. IMPRESSION: Findings consistent with progression of metastatic disease, presumably lung primary with new and enlarging pulmonary and pleural metastases, new left adrenal metastasis, and new pelvic bony metastases. No definite bony metastatic lesion is identified in the lumbar spine, as clinically queried. Note is made of neural foraminal encroachment at T6-T7 on prior chest CT. In this patient who is reportedly not able to move the right lower extremity, consider thoracic and lumbar spine MRI for further evaluation. Unchanged appearance of chronic severe wedge compression deformities of the T11 and L1 vertebral bodies without bony retropulsion. Similar appearance of infrarenal abdominal aortic and right common iliac artery aneurysms. Signed by: Dr. Chandni Lim MD on 11/12/2018 4:48 PM
[2018-11-12 19:11] VITALS: BP 131/66
[2018-11-12] MEDS ORDERED: SODIUM CHLORIDE 0.9% 50ML 50 ML ONE (22:28)
[2018-11-12] MEDS ORDERED: IOPAMIDOL 370 MG/ML 200 ML INFUS..BTL INJ ONE (22:28)
== END 2018-11-12 19:15 | disposition home or self-care (01) ==
LOC: ER 13:57
DX: M79.662 Pain in left lower leg (principal); M79.89 Other specified soft tissue disorders; I10 Essential (primary) hypertension; E11.9 Type 2 diabetes mellitus without complications; Z85.841 Personal history of malignant neoplasm of brain; Z85.118 Personal history of other malignant neoplasm of bronchus and lung; Z85.53 Personal history of malignant neoplasm of renal pelvis; Z85.830 Personal history of malignant neoplasm of bone
CPT/HCPCS: 36415; 74177; 80053; 85025; 85610; 85730; 93926; 93971; 99284; Q9967